=== PATIENT | female | born 1985 | race Caucasian/White ===

== ENCOUNTER 2021-04-13 09:48 | Emergency (ER) | payer BC, SELFPAY ==
[2021-04-13 09:59] VITALS: BP 126/83; PULSE 96; RESP 16; TEMP 36.6; O2SAT 98
--- NOTE | 2021-04-13 10:34 | W.ED.GENAD ---
Discharge Plan Disposition Patient Disposition: HOME Condition: Stable Discharge Details Clinical Impression: Hip pain Primary Care Provider: Karuna,Local ED Provider: Lucius Little Home Meds and New Rx's Prescriptions: New ketorolac 10 mg tablet 10 mg PO Q6H PRNQty: 12 RF: 0 Continued Nexplanon 68 mg Implant 1 implant SUBDERMAL ONCE RF: 0 Discharge Instructions Instructions: Hip Pain (ED) Additional Instructions: Ketorolac as directed. Rest, elevate, cool and/or warm compresses every 2 hours for 20 minutes. Gentle stretching as tolerated. Use crutches as needed, advance activity as tolerated. Please watch for new or worsening symptoms and return to the ER for any concerns. I recommend reaching out to your primary care provider on Thursday during business hours to discuss your ER visit and need for outpatient reevaluation. Discharge Data Discharge Date/Time-TO BE ENTERED AT DEPARTURE: 04/13/21 12:04 Medical Decision Making 36-year-old female who reports past medical history of right hip surgery, intermittent left hip pain presents with increased pain over the past few days after feeling a pop in her left hip while walking, no other trauma. She is afebrile, without warmth, erythema, signs of septic joint, trauma, DVT, etc. Patient states that she is very sensitive to narcotic medication. Given there was no clear trauma, she was able to bear weight, emergent x-ray likely not indicated as low suspicion for acute bony abnormality or dislocation. Certainly seems soft tissue in nature. Discussed options, will provide a single dose of Toradol now and reassess. Patient is returning home tomorrow. We will also provide crutches with teaching. She was encouraged to return to the ER for new or worsening symptoms otherwise she will reach out to her primary care provider and/or orthopedic team on Thursday to discuss her ongoing symptoms and need for outpatient reevaluation. I will provide a short-term prescription of oral ketorolac. Patient has tried [id number] Motrin with little relief, reports that she is sensitive to narcotic medication. Neuro, vascular, tendon intact. No additional questions or concerns upon discharge. HPI General Mode of arrival: ambulatory. Date/Time Provider Initiated Documentation: 04/13/21 09:51. Limitations to Documentation: no limitations. Information obtained by: patient. HPI Narrative: This is a 36-year-old female, reports surgery to her right hip many years ago, subsequently has intermittent left hip pain when favoring her right hip, reports feeling a pop 3 days ago in her left hip when walking, no significant trauma, now reporting moderate pain at rest worse with movement or bearing weight. Has taken [id number] Motrin with little relief. She denies fever, abdominal pain, back pain, dysuria, hematuria, vaginal bleeding or discharge, diarrhea or constipation. Reports the pain is along the anterior aspect of her hip and worse with movement, does not radiate down her leg, no numbness, tingling, weakness, swelling. Denies any calf pain or swelling, history of DVT or PE. Patient states that the pain kept her up last night, is going home tomorrow but simply needs some pain control at this time. She reports that she is very sensitive to narcotic medication. Related Data Home Medications Medication Instructions Recorded Confirmed Nexplanon 1 implant SUBDERMAL ONCE 04/13/21 04/13/21 ketorolac 10 mg PO Q6H PRN #12 tab 04/13/21 Previous Rx's Medication Instructions Recorded ketorolac 10 mg PO Q6H PRN #12 tab 04/13/21 Allergies Allergy/AdvReac Type Severity Reaction Status Date / Time Penicillins Allergy Anaphylaxis Unverified 04/13/21 09:58 oxycodone AdvReac Nausea Unverified 04/13/21 09:58 General Stated Complaint: Orthopedic KARUNA: 4 Review of Systems Constitutional Constitutional: Denies fever(s) and Denies weakness Cardiovascular Cardiovascular: Denies chest pain and Denies dyspnea Respiratory Respiratory: Denies dyspnea Gastrointestinal Gastrointestinal: Denies abdominal pain, Denies nausea and Denies vomiting Genitourinary Genitourinary: Denies abnormal vaginal bleeding, Denies hematuria, Denies dysuria and Denies vaginal discharge Musculoskeletal Musculoskeletal: Denies back pain, Denies deformity, Reports arthralgias, Denies numbness, Reports stiffness and Denies tingling Integumentary/Breasts Skin/Breast: Denies rash Neurologic Neurologic: Denies numbness, Denies tingling and Denies weakness [facility] Social History Smoking/Tobacco Use Status: Never Smoking risk assessment performed?: Yes Alcohol Intake: never Drug use: Never Substance use type: does not use Do you feel safe at home: Yes Do you feel safe in your relationship?: Yes Exam Const General: cooperative, healthy appearing, comfortable and no acute distress Orientation: alert and awake [facility] Head: normal to inspection, normocephalic and atraumatic Eyes General: appearance normal, both eyes and all related structures Conjunctivae: conjunctivae normal Neck Neck: normal visual inspection, trachea midline and supple Resp Effort & Inspection: normal respiratory effort and able to speak in complete sentences Cardio Rate: regular rate Rhythm: regular rhythm GI Inspection: normal to inspection Palpation: soft, not firm, no guarding, no pulsatile masses and nontender Back/Spine/Pelvis Back: No back tenderness Skin General skin exam: no rashes or lesions noted Neuro General: patient alert, patient awake, moves all extremities and no focal motor deficits Cognition: normal cognition Speech: speech normal Gait: antalgic Motor: muscle tone normal throughout Sensory Exam: no sensory deficits noted Extrem General: normal to inspection, no pedal edema and no calf tenderness Other: Left hip normal visual inspection without erythema, ecchymosis or swelling. No warmth to palpation. Patient with diffuse anterior discomfort, soft tissue in nature. There is no induration or fluctuance. Skin is intact. Normal pedal pulse. Limited range of motion secondary to discomfort. Significant increase in pain with external rotation or flexion. Psych Appearance: grossly normal Mental Status: mental status grossly normal Course Vital Signs Vital signs: Vital Signs Temperature 36.6 C 04/13/21 09:59 Pulse 96 H 04/13/21 09:59 Respiratory Rate 16 04/13/21 09:59 Blood Pressure 126/83 04/13/21 09:59 Pulse Oximetry 98 04/13/21 09:59 Temperature 36.6 C 04/13/21 09:59 Temperature Source Temporal Artery Scan 04/13/21 09:59 Pulse 96 H 04/13/21 09:59 Respiratory Rate 16 04/13/21 09:59 Respiratory Effort Non-Labored 04/13/21 10:02 Blood Pressure 126/83 04/13/21 09:59 Blood Pressure Position Supine 04/13/21 09:59 Pulse Oximetry 98 04/13/21 09:59 Oxygen Delivery Method Room Air 04/13/21 09:59 Oxygen Flow Rate 0 04/13/21 09:59 Pain Level 8 04/13/21 10:08
[2021-04-13] MEDS: Ketorolac 60 MG/2 ML VIAL IM (10:40)
[2021-04-13 11:50] VITALS: BP 126/83; PULSE 96; RESP 16; TEMP 36.6; O2SAT 98
== END 2021-04-13 12:04 | disposition home or self-care (01) ==
PROVIDERS: Emergency Provider Physician Assistant
DX: M25.552 Pain in left hip (principal)
CPT/HCPCS: 96372; 99284; 99283; J1885